=== PATIENT | female | born 1930 | race Caucasian/White ===

== ENCOUNTER 2017-06-03 10:49 | Day surgery (SDC) | payer OTHER ==
[2017-05-23 12:24] LABS: ANION GAP 13 mEq/L (8-16); CALCIUM 9.4 mg/dL (8.5-10.4); CARBON DIOXIDE 26 mEq/l (22-31); CHLORIDE 93 mEq/L (97-110); CREATININE 1.3 mg/dL (0.6-1.0); GLOMERULAR FILTRATION RATE 39; GLUCOSE 383 mg/dL (70-100); POTASSIUM 4.1 mEq/L (3.5-5.2); SODIUM 132 mEq/L (134-144)
--- NOTE | 2017-05-26 10:09 | CPEKG ---
Heart Rate: 75 RR Interval: 800 P-R Interval: 228 QRSD Interval: 154 QT Interval: 444 QTC Interval: 496 P [place]: 51 QRS [place]: -32 T Wave [place]: 127 EKG Severity - ABNORMAL ECG - EKG Impression: SINUS RHYTHM EKG Impression: FIRST DEGREE AV BLOCK EKG Impression: LEFT BUNDLE BRANCH BLOCK Electronically Signed For: Alysia Daley 26-May-2017 10:10:13
[~2017-06-03 10:49] MED LIST: BUPIVACAINE 0.5% 30 ML SDV ONE; ceFAZolin 2 GM/SWFI 2 GM/20 ML SYR IVP ONE; ceFAZolin 3 GM in D5W 100 ML IV ONE
[2017-06-03] MEDS ORDERED: LR 1,000 ML IV ONE (11:05)
[2017-06-03] MEDS ORDERED: LIDOCAINE 1% 2 ML INJ ID PRN (11:05)
[2017-06-03] MEDS ORDERED: ceFAZolin 2 GM/SWFI 20 ML SYR IVP ONE (11:16)
--- NOTE | 2017-06-03 12:02 | PDHPUP ---
History & Physical Update H&P update statement: This history and physical update is based on an assessment of the patient which was completed after admission or registration (within 24 hours), but prior to the surgery/procedure.
[2017-06-03] MEDS ORDERED: PROPOFOL 200 MG/20 ML VIAL ONE ×2 (12:13→12:32)
[2017-06-03] MEDS ORDERED: LIDOCAINE 2% 100 MG/5 ML SYR ONE (12:13)
--- NOTE | 2017-06-03 12:18 | PDANEPAE ---
ANE Past Medical History - Cardiovascular History Hx Hypertension: Yes Hx Arrhythmias: No Hx Chest Pain: No Hx Coronary Artery / Peripheral Vascular Disease: Yes Hx CHF / Valvular Disease: No Hx Palpitations: No Cardiovascular History Comment: Pacemaker '13. Denies C.P. Stent place '. On Xarelto. - Pulmonary History Hx COPD: No Hx Asthma/Reactive Airway Disease: No Hx Recent Upper Respiratory Infection: No Hx Oxygen in Use at Home: No Hx Sleep Apnea: No Sleep Apnea Screening Result - Last Documented: Negative Pulmonary History Comment: Pt does snore-no sleep study done. 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 Hypothyroid. - Renal History Hx Renal Disorders: Yes Renal History Comment: incontinence-uses pads. - Liver History Hx Hepatic Disorders: No - Neurological & Psychiatric Hx Hx Neurological and Psychiatric Disorders: Yes Neurological / Psychiatric History Comment: back pain - Cancer History Hx Cancer: Yes Cancer History Comment: uterine , R breast , parathyroid , skin '. - Congenital Disorder History Hx Congenital Disorders: No - GI History Hx Gastrointestinal Disorders: Yes Gastrointestinal History Comment: heartburn-on RX - Other Health History Other Health History: R 1st toe pain-past 4 years- increasingly worse. R bunion. seasonal allergies. Bruises easily. - Chronic Pain History Chronic Pain: Yes (R foot) - Surgical History Prior Surgeries: 16 surgeries: parathyroidectomy, Pacemaker insertion, R Mastectomy,L cataract,L ankle ORIF, L wrist ORIF,. R elbow repair w/pins, heart procedure to correct rhythm, Open heart sx -hole in wall from L to R ventricle, Angioplasty -stent w/balloon,. back sx for cyst, R ft removed cyst, . R knee sx, hemorrhoidectmy, hysterectomy ANE Review of Systems Review of Systems: - Exercise capacity METS (RN): 2 METS - Pacemaker Pacemaker Type: Permanent Pacer/Defib Pacemaker Minister Of Religion: [employer] Pacemaker Model: Rut HARPER [id number] Pacemaker Mode: DDDR Date Pacemaker Last Checked: 03/25/2017 ANE Patient History - Allergies Allergies/Adverse Reactions: No Known Allergies Allergy (Unverified 05/13/17 16:45) - Home Medications Home Medications: Tresiba Flextouch U-100 22 units SQ HS 05/13/17 [Last Taken 06/02/17] GABAPENTIN 05/29/17 [Last Taken 06/02/17] Levothyroxine 05/29/17 [Last Taken 06/02/17] Losartan Potassium 05/29/17 [Last Taken 06/02/17] Ranitidine HCl 05/29/17 [Last Taken 06/02/17] Xarelto 05/29/17 [Last Taken 06/01/17] - NPO status NPO Since - Liquids (Date): 06/02/17 NPO Since - Liquids (Time): 20:00 NPO Since - Solids (Date): 06/02/17 NPO Since - Solids (Time): 18:00 - Smoking Hx Smoking Status: Never smoked ANE Labs/Vital Signs - Labs Result Diagrams: 05/23/17 11:50 - Vital Signs Blood Pressure: 122/73 Heart Rate: 86 Respiratory Rate: 14 O2 Sat (%): 94 Height: 162.56 cm Weight: 90.265 kg ANE Physical Exam - Airway Neck exam: FROM Mallampati Score: Class 3 Mouth exam: normal dental/mouth exam - Pulmonary Pulmonary: no respiratory distress - Cardiovascular Cardiovascular: regular rate and rhythym - ASA Status ASA Status: III ANE Anesthesia Plan Anesthesia Plan: GA w LMA
--- NOTE | 2017-06-03 13:31 | POSTOPPROG ---
Post Op Note Date of Operation: 06/03/17 Surgeon: Patrick Millan Remediation Technician: Dominique Anesthesiologist: Shannan Anesthesia: GET(General Endotracheal) Pre-op Diagnosis: R hallux IP djd Post-op Diagnosis: same Indication: above Procedure: R hallux IP fusion Findings: djd Inf/Abcess present in the surg proc area at time of surgery?: No EBL: Minimal
[2017-06-03] MEDS ORDERED: ONDANSETRON 4 MG/2 ML VIAL IVP PRN (13:35)
[2017-06-03] MEDS ORDERED: NALOXONE HCL 0.4 MG/ML INJ IVP PRN (13:35)
[2017-06-03] MEDS ORDERED: fentaNYL 100 MCG/2 ML INJ IVP PRN (13:35)
[2017-06-03] MEDS ORDERED: ALBUTEROL 3 ML DEYVIAL IH PRN (13:35)
--- NOTE | 2017-06-03 13:35 | POSTANESTH ---
Post Anesthetic Evaluation Cardiovascular Status: Similar to Pre-Op Cond Respiratory Status: Similar to Pre-op Cond. Level of Consciousness/Mental Status: Mildly Sleepy, Arousable Pain Control: Adequate, Prn Tx Ordered Nausea/Vomiting Control: Adequate, Prn Tx Ordered Complications Possibly Related to Anesthesia: None Noted
[2017-06-03 15:49] VITALS: PULSE 82; RESP 16; TEMP 98.1
[2017-06-03 16:08] VITALS: BP 150/96; O2SAT 90
--- NOTE | 2017-06-03 18:03 | GOP ---
[f rep st] OPERATIVE REPORT DATE OF OPERATION: 06/03/2017 SURGEON: Patrick Millan MD ROTOR CASTING MACHINE OPERATOR: Aren Fox SA. ANESTHESIA: General with digital block with 10 mL of Marcaine. PREOPERATIVE DIAGNOSIS: 1. 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 2. Callus. POSTOPERATIVE DIAGNOSIS: 1. 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 2. Callus. PROCEDURE PERFORMED: 1. Right hallux interphalangeal joint fusion. 2. Right hallux callus debridement. FINDINGS: SPECIMENS: None. ESTIMATED BLOOD LOSS: 5 mL. INDICATIONS: This is an 86-year-old female with significant deformed hallux IP joint from prior inju ry. She had failed nonoperative management and is developing callus. I counseled her on the best me thod of surgical intervention, she elected to proceed. We discussed risks of recurrence, loosening, nonunion, malunion, need for further surgery, dysvascularity, and she elected to proceed. Informed c onsent was obtained. All questions were answered. She was marked preoperatively. DESCRIPTION OF PROCEDURE: She was taken to the operating suite, sterilely prepped, and draped in nor mal fashion. Time-out was performed verifying site, side, location, and there was agreement with the team. Esmarch tourniquet was utilized. I made an incision over the dorsal hallux IP joint. I dissected do wn releasing the EHL. The joint was significantly deformed. I released this. I was able to mobiliz e the joint. I made cuts in both bones, prepared the joints for fusion, and corrected the deformity. I was able to straighten the toe and de-rotate it. I placed a guidewire first antegrade and then r etrograde across the toe making a small stab incision on the tip of the toe. I drilled and placed 34 Acutrak screw holding this in stable good position. I liked the position clinically and radiographi angelo. I felt the screw placement was good. This was irrigated, closed with 2-0 Vicryl, 3-0 Vicryl, 3-0 nylon, and 4-0 chromic in the toe wound and some Dermabond. Was taken to PACU in stable conditi on. IMPLANTS: Acutrak 34 mm standard Acutrak screws. COMPLICATIONS: None. DRAINS: None. CONDITION: Stable. /[id number]/MODL
== END 2017-06-03 16:18 | disposition home or self-care (01) ==
LOC: FSGY 10:49
PROVIDERS: ATTEND Orthopaedic Surgery
PROC: 0QSQ04Z Reposition Right Toe Phalanx with Internal Fixation Device, Open Approach (ICD-10-PCS; principal; 2017-06-03 12:15)
DX: M19.071 Primary osteoarthritis, right ankle and foot (principal); L84 Corns and callosities; M21.41 Flat foot [pes planus] (acquired), right foot; E78.5 Hyperlipidemia, unspecified; I25.10 Atherosclerotic heart disease of native coronary artery without angina pectoris; E11.9 Type 2 diabetes mellitus without complications; I10 Essential (primary) hypertension; M81.0 Age-related osteoporosis without current pathological fracture; G47.33 Obstructive sleep apnea (adult) (pediatric); E03.9 Hypothyroidism, unspecified; Z85.3 Personal history of malignant neoplasm of breast; Z95.0 Presence of cardiac pacemaker; Z95.5 Presence of coronary angioplasty implant and graft; Z66 Do not resuscitate
CPT/HCPCS: 28310; 28755; 93005; C1769; C1713; J0690; J2001; J2704

== ENCOUNTER → 2017-06-17 | Day surgery (SDC) | payer OTHER ==
[~2017-06-17] MED LIST changes: +CALCIUM CHLORIDE 1 GM/10 ML INJ ONE; +INSULIN REGULAR HUMAN 100 UNIT/ML ONE; +INSULIN REGULAR HUMAN 100 UNIT/ML SC ONE; +LIDOCAINE 1% 2 ML INJ ID PRN; +LOSARTAN POTASSIUM 25 MG TAB PO ONE; +LR 1,000 ML IV ONE; +MIDAZOLAM 2 MG/2 ML VIAL IVP ONE; +MIDAZOLAM 2 MG/2 ML VIAL ONE; +NALOXONE HCL 0.4 MG/ML INJ IVP PRN; +ONDANSETRON 4 MG/2 ML VIAL ONE; +PHENYLEPHRINE HCL 100 MCG/ML SYR ONE; +PROPOFOL/EMULSION 500 MG/50 ML BOTTLE IV ONE; -ceFAZolin 3 GM in D5W 100 ML IV ONE; +fentaNYL 100 MCG/2 ML INJ ONE
--- NOTE | 2017-06-17 10:15 | PDANEPAE ---
ANE Past Medical History - Cardiovascular History Hx Hypertension: Yes Hx Arrhythmias: Yes Hx Chest Pain: No Hx Coronary Artery / Peripheral Vascular Disease: Yes Hx CHF / Valvular Disease: Yes Hx Palpitations: No Cardiovascular History Comment: sss. afib. pacer 2007. mi 1997. cad. cabg 2007. vsd. tricupsid valve regurg - Pulmonary History Hx COPD: No Hx Asthma/Reactive Airway Disease: No Hx Recent Upper Respiratory Infection: No Hx Oxygen in Use at Home: No Hx Sleep Apnea: No Sleep Apnea Screening Result - Last Documented: Negative Pulmonary History Comment: Pt does snore-no sleep study done. - Neurologic History Hx Cerebrovascular Accident: No Hx Seizures: No Hx Dementia: No - Endocrine History Hx Diabetes: Yes Endocrine History Comment: type 2. hypothyroidism - Renal History Hx Renal Disorders: Yes Renal History Comment: incontinence-uses pads. - Liver History Hx Hepatic Disorders: No - Neurological & Psychiatric Hx Hx Neurological and Psychiatric Disorders: Yes Neurological / Psychiatric History Comment: back pain - Cancer History Hx Cancer: Yes Cancer History Comment: uterine , R breast ', parathyroid ', skin '15. - Congenital Disorder History Hx Congenital Disorders: No - GI History Hx Gastrointestinal Disorders: Yes Gastrointestinal History Comment: heartburn-on RX - Other Health History Other Health History: Bruises easily. wears bilateral hearing aides. wears glasses - Chronic Pain History Chronic Pain: Yes (R foot) - Surgical History Prior Surgeries: 06/03/17 right foot surgery with Monty. 16 surgeries: parathyroidectomy, Pacemaker insertion, R Mastectomy,L cataract,L ankle ORIF, L wrist ORIF,. R elbow repair w/pins, heart procedure to correct rhythm, Open heart sx -hole in wall from L to R ventricle, Angioplasty -stent w/balloon,. back sx for cyst, R ft removed cyst,. R knee sx, hemorrhoidectmy, hysterectomy ANE Review of Systems Review of Systems: - Exercise capacity METS (RN): 2 METS - Pacemaker Pacemaker Type: Permanent Pacer/Defib Pacemaker Injection Maintenance Technician: [employer] Pacemaker Model: mary kay alba Pacemaker Mode: DDDR Pacemaker Set Rate: 60 Date Pacemaker Last Checked: 03/25/2017 ANE Patient History - Allergies Allergies/Adverse Reactions: No Known Allergies Allergy (Verified 06/13/17 16:34) - Home Medications Home Medications: Tresiba Flextouch U-100 05/13/17 [Last Taken 06/02/17] GABAPENTIN 05/29/17 [Last Taken 06/02/17] Levothyroxine 05/29/17 [Last Taken 06/02/17] Losartan Potassium 05/29/17 [Last Taken 06/02/17] Ranitidine HCl 05/29/17 [Last Taken 06/02/17] - Smoking Hx Smoking Status: Never smoked - Family Anes Hx Family Hx Anesthesia Complications: none ANE Labs/Vital Signs - Vital Signs Height: 162.56 cm Weight: 90.265 kg ANE Physical Exam - Airway Neck exam: decreased ROM Mallampati Score: Class 3 Mouth exam: poor dentition - Pulmonary Pulmonary: no respiratory distress, no rales or rhonchi, clear to auscultation - Cardiovascular Cardiovascular: regular rate and rhythym, systolic murmur (Pacer in and functioning for camelia arrythmia) - ASA Status ASA Status: III ANE Anesthesia Plan Anesthesia Plan: GA w LMA (risk of LMA discussed)
[2017-06-17 10:23] VITALS: PULSE 94
--- NOTE | 2017-06-17 11:57 | POSTANESTH ---
Post Anesthetic Evaluation Respiratory Status: Normal, Stable Level of Consciousness/Mental Status: Can Participate in Eval Pain Control: Adequate, Prn Tx Ordered Nausea/Vomiting Control: Adequate, Prn Tx Ordered Complications Possibly Related to Anesthesia: None Noted
--- NOTE | 2017-06-17 11:58 | POSTOPPROG ---
Post Op Note Date of Operation: 06/17/17 Surgeon: Patrick Millan Coal Dumping Equipment Operator: Dominique Anesthesiologist: Lory Anesthesia: GET(General Endotracheal) Pre-op Diagnosis: R hallux IP fusion failure Post-op Diagnosis: same Indication: above Procedure: revision R hallux IP fusion Inf/Abcess present in the surg proc area at time of surgery?: No EBL: Minimal
--- NOTE | 2017-06-17 12:29 | GOP ---
[f rep st] OPERATIVE REPORT DATE OF OPERATION: 06/17/2017 SURGEON: Patrick Millan MD CONVERTER SUPERVISOR: Aren Fox SA. ANESTHESIA: General with digital block 10 cc Marcaine. PREOPERATIVE DIAGNOSIS: Right hallux IP fusion failure. POSTOPERATIVE DIAGNOSIS: Right hallux IP fusion failure. PROCEDURE PERFORMED: Revision right hallux IP fusion. FINDINGS: SPECIMENS: None. ESTIMATED BLOOD LOSS: 5 mL INDICATIONS: An 87-year-old female, who 2 weeks ago I had performed a hallux IP fusion for severe deformity. She was at her care facility and was walking without the boot and bending the toe. She came to clinic she had failed her fixation and had drifted back into her previous deformity. I counseled her and her family of the risks and benefits of revision fusion. They elected to proceed. I discussed use of bigger screws as well as cross pinning. We also discussed the possibility of an amputation if this were to fail, and she elected to proceed. We discussed risks of failure of this fixation, nonunion, malunion, continued pain, wound complications especially given her diabetes and she would like to proceed. Informed consent obtained. All questions answered. She was marked preoperatively. DESCRIPTION OF PROCEDURE: She was taken to the operative suite. She was positioned and sterilely prepped and draped in normal fashion. Time-out was performed verifying the site, side, location and there was agreement with the team. I made incision through her old incision and exposed the toe. I also exposed the tip of the toe. I used a guide pin and removed the old screw. Placed a new guide pin down this hole and then drilled this further into bone. Measured this. I straightened the toe and reduced the deformity after cleaning out a small amount of scar tissue of the joint. I then placed a 45 mm Acutrak screw across this. This held this in good alignment and compression. I then used two 6.2 K-wires to cross pin this for additional stability given her previous noncompliance and poor bone quality. The toe was stable. There was no rotational deformity. She was thoroughly irrigated. The wounds were closed with 2-0 Vicryl, 3-0 nylon, 3-0 chromic. She was placed in sterile dressing, taken to PACU in stable condition. IMPLANTS: Acutrak 47, 45 mm screw and 2 K-wires. COMPLICATIONS: None. DRAINS: None. CONDITION: Stable. /[id number]/MODL MTDD
[2017-06-17 13:40] VITALS: RESP 18
[2017-06-17 13:43] VITALS: BP 132/86; TEMP 98.2; O2SAT 92
== END | disposition home or self-care (01) ==
LOC: FSGY 09:33
PROVIDERS: ATTEND Orthopaedic Surgery
PROC: 0QSQ04Z Reposition Right Toe Phalanx with Internal Fixation Device, Open Approach (ICD-10-PCS; principal; 2017-06-17 10:30)
DX: T84.89XA Other specified complication of internal orthopedic prosthetic devices, implants and grafts, initial encounter (principal); M19.071 Primary osteoarthritis, right ankle and foot; E11.9 Type 2 diabetes mellitus without complications; E78.5 Hyperlipidemia, unspecified; I25.2 Old myocardial infarction; I25.10 Atherosclerotic heart disease of native coronary artery without angina pectoris; I10 Essential (primary) hypertension; E03.9 Hypothyroidism, unspecified; Z85.3 Personal history of malignant neoplasm of breast; Z95.0 Presence of cardiac pacemaker; Z95.5 Presence of coronary angioplasty implant and graft
CPT/HCPCS: C1713; J0690; J1815; J2250; J2370; J2405; J2704; J3010